=== PATIENT | female | born 1960 | race Caucasian/White ===

== ENCOUNTER → 2017-10-23 15:18 | Outpatient (CLI) | payer BC, SELFPAY ==
--- NOTE | 2017-10-23 15:21 | MM_ITS ---
MM Dig SC mamm implant BI CAD CAD Screening ORDERING PHYSICIAN : Miki Cordero MD PATIENT AGE: 57 years GENDER: Female COMPARISON: Previous mammograms: January 18 June 2000 13 February 2012 INDICATION: Routine screening. No hormones. Bilateral breast implants. 2 sisters with breast cancer TECHNIQUE: Standard CC and MLO images were obtained. R2 CAD reviewed. TECHNIQUE: Tiago technique utilized. CC & MLO images were obtained of the breast tissue overlying implant, as well as a second set of images including the breast implant. Mammography is inherently limited due to the implants is a could obscure areas of breast R2 CAD reviewed. FINDINGS: Moderately dense breast tissue overlying the breast implants bilaterally centimeters above Stable minimal nodularity bilaterally. For example at the lateral right left breast are some mild nodularity which is similar to studies dating back to 2016 & 2011 no significant progression or new findings. Minor subtle nodularity at the deep lateral left breast well as medial left breast have been seen previously and seem to dissipate from one view to another. Can be followed. Bilateral follow-up in one year adequate IMPRESSION:== No significant new areas of concern. Stable mammogram. Bilateral follow-up in one year recommended. & Should be emphasized/encouraged. . ( Note Bilateral breast implants limit visualization of breast & inherently decrease sensitivity of mammography, as does is moderate dense inhomogeneous breast pattern in this patient) BI-RADS Category: 2 Benign Finding(s) RECOMMENDED FOLLOW-UP: 1YR - 1 YEAR FOLLOW-UP (A letter has been sent to the patient regarding results of the study.) .
== END ==
PROVIDERS: Family Provider Family Medicine; PCP Family Medicine; Visit Provider Nurse Practitioner Obstetrics & Gynecology
DX: Z12.31 Encounter for screening mammogram for malignant neoplasm of breast (principal)
CPT/HCPCS: 77067

== ENCOUNTER → 2018-01-18 16:16 | Outpatient (POV) | payer BC, SELFPAY | PROVIDERS: Family Provider Family Medicine; PCP Family Medicine; Visit Provider Nurse Practitioner Acute Care | DX: Z00.00 Encounter for general adult medical examination without abnormal findings (principal) ==

== ENCOUNTER → 2019-06-29 08:28 | Outpatient (CLI) | payer BC, SELFPAY ==
--- NOTE | 2019-06-29 08:30 | MM_ITS ---
PROCEDURE: MM DIG SC MAMM IMPLANT BI CAD CLINICAL INDICATION: Routine Screening Mammogram- With Implants COMPARISON: [facility] DIG MAMM-SCREEN IMPLANT from 06/29/2013 D[facility]I DIG MAMM-SCREEN IMPLANT from 01/09/2016 [facility] MM Dig SC mamm implant BI CAD from 10/23/2017 TECHNIQUE: Standard CC and MLO images were obtained. R2 CAD reviewed. FINDINGS: There are bilateral breast implants. Both implants appear intact with no evidence of leakage. Moderate somewhat heterogenic fibroglandular densities are seen in the [place] breast tissue bilaterally. There is no suspicious lesion in either breast and no suspicious microcalcifications. IMPRESSION: Stable exam with no suspicious lesions seen BI-RAD Category: 2 Benign Finding(s) FOLLOW-UP: 1YR 1 Year Follow-up (A letter has been sent to the patient regarding results of the study.) Dictated by: Dr. César Spring MD 07/04/2019 11:[address] César Spring MD in [place] 07/04/2019 11:37
== END ==
PROVIDERS: PCP Family Medicine; Visit Provider Nurse Practitioner Obstetrics & Gynecology
DX: Z12.31 Encounter for screening mammogram for malignant neoplasm of breast (principal)
CPT/HCPCS: 77067

== ENCOUNTER → 2019-07-29 07:50 | Outpatient (CLI) | payer BC, SELFPAY ==
[2019-07-29 08:16] LABS: Basophils % 0.5 % (0.1-2.0); Eosinophils # 0.1 K/mm3 (0.0-0.4); Eosinophils % 1.7 % (0.1-12.0); Hematocrit 42.3 % (37.0-47.0); Hemoglobin 14.4 g/dL (12.2-16.2); Lymphocytes # 1.8 K/mm3 (0.7-4.5); Mean Corpuscular HGB Conc 34.1 g/dL (31.8-35.4); Mean Corpuscular Hemoglobin 31.1 pg (27.0-31.2); Mean Corpuscular Volume 91.2 fl (81-99); Mean Platelet Volume 8.2 fl (7.4-10.4); Monocytes # 0.2 K/mm3 (0.1-1.0); Monocytes % 4.5 % (1.7-9.3); Neutrophils # 3.1 K/mm3 (1.8-7.8); Neutrophils % 58.3 % (37.0-80.0); Platelet Count 219 K/mm3 (142-424); Red Blood Count 4.63 M/mm3 (4.20-5.40); Red Cell Distribution Width 13.2 % (11.5-17.5); White Blood Count 5.2 K/mm3 (4.8-10.8)
[2019-07-29 08:54] LABS: Alanine Aminotransferase 26 U/L (12-78); Albumin Level 3.8 gm/dL (3.4-5.0); Albumin/Globulin Ratio 1.2 (1.1-1.8); Alkaline Phosphatase 93 U/L (46-116); Anion Gap 12.2 mEq/L (5-15); Aspartate Amino Transferase 16 U/L (15-37); Bilirubin,Total 0.8 mg/dL (0.2-1.0); Blood Urea Nitrogen 15 mg/dL (7-18); Calcium 8.5 mg/dL (8.5-10.1); Carbon Dioxide 29 mmol/L (21.0-32.0); Chloride 105 mmol/L (98-107); Cholesterol 219 mg/dL (140-200); Creatinine,Serum 0.73 mg/dL (0.55-1.02); Estimated Glomerular Filt Rate 82 ml/min (>60); GFR (African American) 99 ML/MIN (>60); Globulin 3.2 gm/dl (1.3-3.2); Glucose 114 mg/dL (74-106); HDL Cholesterol 44 mg/dL (29-89); LDL Cholesterol 126 mg/dL (0-130); Potassium 4.2 mmoL/L (3.5-5.1); Sodium 142 mmol/L (136-145); Thyroid Stimulating Hormone 0.79 uIU/ml (0.358-3.740); Triglycerides 246 mg/dL (30-200); VLDL Cholesterol 49 mg/dL (0-40)
== END ==
PROVIDERS: Visit Provider Nurse Practitioner Obstetrics & Gynecology
DX: Z01.419 Encounter for gynecological examination (general) (routine) without abnormal findings (principal); R53.83 Other fatigue; R63.5 Abnormal weight gain
CPT/HCPCS: 36415; 80053; 80061; 84443; 85025

== ENCOUNTER 2021-03-19 17:19 | Emergency (ER) | payer BC, SELFPAY ==
[2021-03-19 18:50] VITALS: BP 142/80; PULSE 91; RESP 19; TEMP 36.7; O2SAT 100; BMI 35.6
--- NOTE | 2021-03-19 19:19 | HMH.EDUTC ---
[facility] [place] Clinical Impression: Strep throat Disposition: Home, Self-Care Condition on Discharge: Good Instructions: Strep Throat, DI for Strep Throat, Benzonatate, Amoxicillin Additional Instructions: *Monitor Temp, Over the counter Motrin or Tylenol as directed/as needed Tylenol every 4 hours and Motrin every 6 hours (as long as your family doctor has told you that you can take it) for fever or pain. and straight to ER if unable to lower temp less than 101.0 after medication given *Warm salt water gargles may help to soothe the throat *Throat Lozenges *Warm fluids like tea with honey may help to soothe the throat *Sleep elevated *Humidifier/Vaporizer Take medication as prescribed Make sure to Drink plenty of fluids Follow up IMMEDIATELY for new or worsening symptoms or no Noticeable improvement over the next 48-72 hours. 911 for difficulty breathing or swallowing You were tested for today for COVID19 your test result should be back in the next 24-48 hours, you may call to the [facility] to see if your test results are back in the next 48 hours [phone] [facility] hours are 9am-9pm You was given a handout with instructions for Self Quarantine and Self isolation for while you wait on test results and what to do if they are positive If you are positive the Health Dept will be contacting you also Make sure to take your Vitamins Vit. C Vit D and Zinc if you can take them Prescriptions: Amoxicillin [Amoxicillin 500mg Cap] 500 mg PO TID #30 cap Transmission Status: Pending to [id number] Benzonatate [Tessalon Perle 100mg Cap*] 100 mg PO TID PRN #30 cap PRN Reason: Cough Transmission Status: Pending to [id number] Referrals: Charanjit Syed [Primary Care Provider] - As needed Forms: Work/School Release Time of Disposition: 19:27 Medical Decision Making - Chuck Inquiry Pt receiving controlled substance: No Chuck was queried for this patient: No Vital Signs: 03/19/21 18:50 Temperature 98.1 F Temperature Source Oral Pulse Rate [Right Brachial] 91 H Respiratory Rate 19 Blood Pressure [Right Arm] 142/80 H Blood Pressure Mean [Right Arm] 100 Blood Pressure Source [Right Arm] Automatic Cuff Blood Pressure Position [Right Arm] Sitting 02 Sat by Pulse Oximetry 100 Oxygen Delivery Method Room Air - Lab Data Lab results reviewed: Yes: I reviewed the patient's lab results. Orders (Tests/Meds): ORDERS Category Date Time Status Covid-19 Nasal PCR ([facility]) Routine Lab 03/19/21 19:07 Ordered [facility] [place] - General Stated complaint: cough,TAYLOR, Body Pain, Ear Pain Time Seen by Provider: 03/19/21 19:19 Mode of Arrival: Ambulatory Source of Information: Patient Limitations: No Limitations Description of Symptoms (Recalled from Triage Doc. by RN): PATIENT C/O BODY ACHES, COUGH, HEADACHE, AND EAR ACHE SINCE YESTERDAY HEENT Symptoms (Recalled from RN notes): Yes Resp Symptoms (Recalled from RN notes): Yes Skin Symptoms (Recalled from RN notes): No MS Symptoms (Recalled from RN notes): No Functional Status (Recalled from RN notes): WNL - History of Present Illness Provider Complaint: Patient state that she has been having body aches, sore throat, pain in her ears, and feeling achy all over States that son tested positive for strep yesterday and feels like she may have it too and wanted to get tested for COVID - Related Data Home Medications Medication Instructions Recorded Confirmed amitriptyline 25 mg tablet 25 mg PO DAILY 30 Days #30 12/14/17 03/19/21 zolpidem 10 mg tablet 10 mg PO QHS PRN 12/14/17 03/19/21 omeprazole 20 mg capsule,delayed 10 mg PO DAILY 07/18/19 03/19/21 release Previous Rx's Medication Instructions Recorded Amoxicillin [Amoxicillin 500mg 500 mg PO TID #30 cap 03/19/21 Cap] Benzonatate [Tessalon Perle 100mg 100 mg PO TID PRN #30 cap 03/19/21 Cap*] Allergies Allergy/AdvReac Type Severity Reaction Status Date / Time hydrocodone Allergy Verified
[2021-03-19 19:37] VITALS: BP 142/80; PULSE 91; RESP 19; TEMP 36.7; O2SAT 100
--- NOTE | 2021-03-20 12:58 | PC.NURSE ---
relayed positive covid result
[2021-03-20 22:36] LABS: UTC Strep Screen (Rapid) Positive (Negative)
== END 2021-03-19 19:40 | disposition home or self-care (01) ==
PROVIDERS: Emergency Provider Nurse Practitioner; PCP Family Medicine
DX: J02.0 Streptococcal pharyngitis (principal); R05 Cough; R51.9 Headache, unspecified
CPT/HCPCS: 87880; 99203; G0463; U0003

== ENCOUNTER → 2021-08-07 14:32 | Outpatient (CLI) | payer OTHER, SELFPAY ==
--- NOTE | 2021-08-07 14:32 | MM_ITS ---
PROCEDURE INFORMATION: Exam: MG Bilateral Screening 3D Mammography Exam date and time: 08/07/2021 2:32 PM Age: 61 years old Clinical indication: Screening mammogram TECHNIQUE: Imaging protocol: Bilateral screening tomosynthesis and 2D mammography including computer-aided detection (CAD) when performed. COMPARISON: 1. MG MM DIG SC MAMM IMPLANT BI CAD 06/29/2019 8:45 AM 2. MG [facility] MM Dig SC mamm implant BI CAD 10/23/2017 3:42 PM 3. MG DMSI DIG MAMM-SCREEN IMPLANT 01/09/2016 4:48 PM 4. MG [facility]MSI DIG MAMM-SCREEN IMPLANT 06/29/2013 11:25 AM FINDINGS: MAMMOGRAPHY: Breast composition: The breast tissue is heterogeneously dense, which may obscure small masses. Mass: None. Architectural distortion: No new or suspicious architectural distortion. Calcifications: No new or suspicious calcifications are present Asymmetric density: No new or suspicious asymmetric density is present Skin thickening: None. Axillary adenopathy: None. Implants: Subpectoral saline augmentation implants are present. IMPRESSION: No mammographic evidence of malignancy. Recommend annual screening mammography unless otherwise clinically indicated. ASSESSMENT: BI-RADS category 2: Benign
== END ==
PROVIDERS: PCP Family Medicine; Visit Provider Nurse Practitioner Obstetrics & Gynecology
DX: Z12.31 Encounter for screening mammogram for malignant neoplasm of breast (principal)
CPT/HCPCS: 77063; 77067

== ENCOUNTER 2022-11-30 14:31 | Emergency (ER) | payer OTHER, SELFPAY ==
[2022-11-30 15:45] VITALS: BP 133/80; PULSE 75; RESP 19; TEMP 36.8; O2SAT 97; BMI 35.3
--- NOTE | 2022-11-30 16:13 | EXP.UTC ---
Discharge Plan Disposition Patient Disposition: Home, Self-Care Condition: Good Prescriptions Prescriptions: New benzonatate 100 mg capsule 100 mg PO TID PRN (Reason: cough) Qty: 30 0RF amoxicillin-pot clavulanate 875-125 mg Tablet 1 tab PO Q12H Qty: 20 0RF fluticasone propionate [Flonase Allergy Relief] 50 mcg/actuation spray,suspension 1 - 2 spray intranasal DAILY Qty: 16 0RF Rx Instructions: administer into each nostril daily No Action zolpidem [Ambien] 10 mg tablet 10 mg PO QHS PRN (Reason: Sleep) montelukast 10 mg tablet 10 mg PO DAILY albuterol sulfate 90 mcg/actuation HFA aerosol inhaler 2 puff INHALATION aspirin 81 mg capsule 81 mg PO DAILY omeprazole 20 mg capsule,delayed release(DR/EC) 10 mg PO DAILY famotidine 40 mg tablet 40 mg PO DAILY Label Comments: TAKE 1 TABLET BY MOUTH EVERY DAY AT NIGHT triamterene-hydrochlorothiazid 37.5-25 mg tablet 1 tab PO DAILY Label Comments: TAKE 1 TABLET BY MOUTH EVERY DAY Referrals Follow up/Referrals: Charanjit Syed [Primary Care Provider] - See instructions Activity Restrictions/Add. Instructions Additional Instructions/Restrictions: *Monitor Temp, Over the counter Motrin or Tylenol as directed/as needed Tylenol every 4 hours and Motrin every 6 hours (as long as your family doctor has told you that you can take it) for fever or pain. and straight to ER if unable to lower temp less than 101.0 after medication given *Warm salt water gargles may help to soothe the throat *Throat Lozenges? *Warm fluids like tea with honey may help to soothe the throat? *Sleep elevated *Humidifier/Vaporizer *Flonase 2 sprays in each nostril daily but be aware that it may take 2-3 days before you notice improvement Follow up IMMEDIATELY for new or worsening symptoms or no Noticeable improvement over the next 48-72 hours. 911 for difficulty breathing or swallowing Clinical Impressions Clinical Impression: Sinusitis Instructions Patient Instructions: DI for Sinusitis, Sinusitis, Cough Discharge ED Provider: Cat Lazo [facility] General Stated complaint: Congestion, drainage, Cough, LT ear pain Mode of Arrival: Ambulatory Source of Information: Patient Limitations: No Limitations Time Seen by Provider: 11/30/22 16:13 Description of Symptoms (Recalled from Triage Doc. by RN): productive cough, ear, and sinus pressure HEENT Symptoms (Recalled from RN notes): Yes Resp Symptoms (Recalled from RN notes): No Skin Symptoms (Recalled from RN notes): No MS Symptoms (Recalled from RN notes): No Functional Status (Recalled from RN notes): n/a History of Present Illness Provider Complaint: Patient states that she has been having pain in her left ear, sinus pain and pressure, and cough States that she has productive cough when she wakes up thinks it may be from the drainage when she is sleeping and after she is up she doesnt cough anything up States that her sinus pressure was getting worse so she came in to get checked Related Data Home Medications Medication Instructions Recorded Confirmed zolpidem 10 mg tablet (Ambien) 10 mg PO QHS PRN Sleep 12/14/17 11/30/22 omeprazole 20 mg capsule,delayed 10 mg PO DAILY Heartburn 07/18/19 11/30/22 release albuterol sulfate 90 mcg/actuation 2 puff inhalation 07/31/21 07/31/21 aerosol inhaler aspirin 81 mg capsule 81 mg PO DAILY 07/31/21 07/31/21 montelukast 10 mg tablet 10 mg PO DAILY allergies 07/31/21 11/30/22 famotidine 40 mg tablet 40 mg PO DAILY gerd 11/30/22 11/30/22 triamterene 37.5 1 tab PO DAILY . 11/30/22 11/30/22 mg-hydrochlorothiazide 25 mg tablet Previous Rx's Medication Instructions Recorded amoxicillin 875 mg-potassium 1 tab PO Q12H #20 tabs 11/30/22 clavulanate 125 mg tablet benzonatate 100 mg capsule 100 mg PO TID PRN cough #30 caps 11/30/22 fluticasone propionate 50 1 - 2 spray intranasal DAILY #16
[2022-11-30 16:30] VITALS: BP 133/80; PULSE 75; RESP 19; TEMP 36.8; O2SAT 97
== END 2022-11-30 16:29 | disposition home or self-care (01) ==
PROVIDERS: Emergency Provider Nurse Practitioner; PCP Family Medicine
DX: J01.90 Acute sinusitis, unspecified (principal); H92.02 Otalgia, left ear; R05.9 Cough, unspecified; I10 Essential (primary) hypertension; K21.9 Gastro-esophageal reflux disease without esophagitis
CPT/HCPCS: 99212; 99214; G0463

== ENCOUNTER → 2023-03-31 16:45 | Outpatient (CLI) | payer OTHER, SELFPAY ==
--- NOTE | 2023-03-31 16:50 | MM_ITS ---
PROCEDURE INFORMATION: Exam: MG Bilateral Screening 3D Mammography Exam date and time: 03/31/2023 4:43 PM Age: 62 years old Clinical indication: Screening examination; Additional info: Screening mammogram . Family history of breast carcinoma. TECHNIQUE: Imaging protocol: Bilateral Screening tomosynthesis and 2D mammography including computer-aided detection (CAD) when performed. COMPARISON: 1. MG MM DIG SC MAMM IMPLANT BI CAD 08/07/2021 2:41 PM 2. MG MM DIG SC MAMM IMPLANT BI CAD 06/29/2019 8:45 AM 3. MG [facility] MM Dig SC mamm implant BI CAD 10/23/2017 3:42 PM FINDINGS: MAMMOGRAPHY: Breast composition: The breasts are heterogeneously dense, which may obscure small masses. Mass: No suspicious masses. Architectural distortion: No suspicious distortion. Calcifications: No suspicious calcifications. Asymmetric density: None. Skin thickening: None. Axillary adenopathy: None. Implants: : Bilateral subpectoral saline breast implants noted IMPRESSION: 1. No mammographic evidence of malignancy. Annual screening is recommended unless otherwise clinically indicated. 2. Given the reported risk factors for this patient, a breast cancer risk assessment may prove useful for further evaluation. ASSESSMENT: BI-RADS Category 1: Negative
== END ==
PROVIDERS: PCP Family Medicine; Visit Provider Nurse Practitioner Obstetrics & Gynecology
DX: Z12.31 Encounter for screening mammogram for malignant neoplasm of breast (principal)
CPT/HCPCS: 77063; 77067

== ENCOUNTER → 2023-04-04 08:51 | Outpatient (CLI) | payer OTHER, SELFPAY ==
[2023-04-04 09:49] LABS: Basophils % 0.6 % (0.1-2.0); Eosinophils # 0.1 K/mm3 (0.0-0.4); Eosinophils % 1.1 % (0.1-12.0); Hematocrit 40.6 % (37.0-47.0); Lymphocytes # 1.8 K/mm3 (0.7-4.5); Lymphocytes % 25.5 % (10-50); Mean Corpuscular HGB Conc 34.6 g/dL (31.8-35.4); Mean Corpuscular Hemoglobin 30.2 pg (27.0-31.2); Mean Corpuscular Volume 87.5 fl (81-99); Mean Platelet Volume 9.1 fl (7.4-10.4); Monocytes # 0.3 K/mm3 (0.1-1.0); Monocytes % 4.9 % (1.7-9.3); Neutrophils # 4.8 K/mm3 (1.8-7.8); Platelet Count 230 K/mm3 (142-424); Red Blood Count 4.63 M/mm3 (4.20-5.40); Red Cell Distribution Width 13.8 % (11.5-17.5)
[2023-04-04 11:36] LABS: Alanine Aminotransferase 22 U/L (12-78); Albumin/Globulin Ratio 1.4 (1.1-1.8); Alkaline Phosphatase 103 U/L (38-126); Aspartate Amino Transferase 26 U/L (14-36); Bilirubin,Total 1.1 mg/dl (0.2-1.3); Blood Urea Nitrogen 12 mg/dl (7-17); Calcium 8.8 mg/dl (8.4-10.2); Carbon Dioxide 32 mmol/L (22.0-30.0); Chloride 101 mmol/L (98-107); Chol/HDL Ratio 4.5 (1-3.5); Cholesterol 158 mg/dl (140-200); Estimated Glomerular Filt Rate 85 ml/min (>60); GFR (African American) 103 ML/MIN (>60); Globulin 2.8 g/dL (1.3-3.2); Glucose 115 mg/dl (74-100); HDL Cholesterol 35 mg/dl (40-60); Sodium 141 mmol/L (136-145); Total Protein,Serum 6.8 g/dl (6.3-8.2); Triglycerides 146 mg/dl (30-150); VLDL Cholesterol 29 mg/dL (0-40)
[2023-04-04 11:47] LABS: Direct LDL Cholesterol 86.76 mg/dL (100-129)
== END ==
PROVIDERS: PCP Family Medicine; Visit Provider Nurse Practitioner Obstetrics & Gynecology
DX: Z00.00 Encounter for general adult medical examination without abnormal findings (principal)
CPT/HCPCS: 36415; 80053; 80061; 85025

== ENCOUNTER 2024-11-08 12:36 | Outpatient (CLI) | payer OTHER, SELFPAY ==
--- NOTE | 2024-11-08 13:08 | MM_ITS ---
PROCEDURE INFORMATION: Exam: MG Bilateral Screening 3D Mammography Exam date and time: 11/08/2024 1:09 PM Age: 64 years old Clinical indication: Screening. Two sisters and maternal aunts had breast cancer. TECHNIQUE: Imaging protocol: Bilateral Screening tomosynthesis and 2D mammography including computer-aided detection (CAD) when performed. COMPARISON: 1. MG MM DIG SC MAMM IMPLANT BI CAD 03/31/2023 4:43 PM 2. MG MM DIG SC MAMM IMPLANT BI CAD 08/07/2021 2:41 PM 3. MG MM DIG SC MAMM IMPLANT BI CAD 06/29/2019 8:45 AM 4. MG [facility] MM Dig SC mamm implant BI CAD 10/23/2017 3:42 PM FINDINGS: MAMMOGRAPHY: Breast composition: The breasts are heterogeneously dense, which may obscure small masses. Mass: No suspicious mass. Architectural distortion: None. Calcifications: No suspicious calcifications. Asymmetric density: None. Skin thickening: None. Axillary adenopathy: None. Implants: Subpectoral saline implants. IMPRESSION: No mammographic evidence of malignancy. Annual screening is recommended unless otherwise clinically indicated. Given the reported risk factors coupled with the patient's breast density, a breast cancer risk assessment may prove useful for further evaluation. ASSESSMENT: BI-RADS Category 1: Negative.
--- OUTSIDE RECORDS SUMMARY | 2024-11-10 21:11 | XMS_ITS | Data Portability ---
Author Organization [facility] ADMIN Address [address] [place] [address] Care Team Providers Care Marina Porter Name Role Phone DANIELSHEELA Primary Care Provider BRENDA GASCA Final Finisher [employer] [phone] Assessment No assessment recorded. Plan of Treatment Reminders Order Date Submit Date Provider Last Modified By Organization Details Last Modified Time Details Appointments Procedure 30 min 2024 09:00A Madeleine Wakefield M.D Not available Not available Not available OV EST 15 2024 09:45A M Brenda Gasca, ARABELLA Not available Not available Not available Lab None recorded. Referral None recorded. Procedures colonosco py procedure (PROC) 2023 024 [facility] Adam [address], [place], [address], 04/13/2024 13:50:22 Surgeries None recorded. Imaging US, liver [address] ([facility], [address] [place] [address] , [place], [address], 03/30/2024 13:32:37 Medication Orders omeprazol e 40 mg capsule,d elayed release 2023 024 [facility]/Pharmacy #[id number], [address], [place], [address], 03/30/2024 13:32:39 famotidin e 40 mg tablet [address] [facility]/Pharmacy #3016, [address] [place], [address], 03/30/2024 13:32:39 Miralax 17 gram/dose oral powder [email or web address] [facility]/Pharmacy #3016, [address] [place], [address], 03/30/2024 14:37:39 Dulcolax (bisacody l) 5 mg tablet,de layed release [email or web address] [facility]016, [address] [facility] [place], [address], 03/30/2024 14:37:39 Patient TargetsNo targets recorded. Patient InstructionsNo instructions recorded. Reason for Referral None Reported. Results Created Date Observation Date Name Description Value Unit Range Abnormal Flag Note LastModifiedBy Organization Detail LastModifiedTime 04/06/20 24 audio gram No observ ation record ed. [email or web address] Not Available 2023 17:10:50 Result Notes None recorded. Problems Name Problem SNOMED Code Status Onset Date Resolution Date Notes Provider Name and Address Organization Details Recorded Time Hearing loss 28521824 Active 2021 Kelly pelayo [place] - [facility] - [place] & [place] 2 10:35:33 Gastroesophag eal reflux disease 585741178 Active 2021 Kelly pelayo [place] [facility] [place] & [place] 2 10:35:46 Upper abdominal pain 92184524 Active 2021 Brenda Gasca NP [address], [address], [address] , [place] [facility] & [place] 2 11:10:08 Gastro-esopha geal reflux disease with esophagitis 115513623 Active 2021 Brenda Gasca NP [address], [address], [place], [address] , [place] [facility] & [place] 2 11:10:21 Abdominal bloating 106866941 Active 2021 Brenda Gasca NP [address], [address], [place], [address] , [place] [facility] [place] & [place] 2 11:10:30 Steatosis of liver 518131324 Active 2021 Brenda Gasca NP [address], [address], [place], [address] , [place] [facility] & [place] 2 11:10:36 Liver cyst 58009753 Active 2021 Brenda Gasca NP [address], [address], [place], [address] , [place] [facility] & [place] 2 11:10:44 Gastritis 0903631 Active 2022 Brenda Gasca NP [address], [address], [place], [address] , [place] [facility] & [place] 3 22:21:51 Sensorineural hearing loss 78922661 Active 2023 JOSE MANUEL KRUGER, AUD [address] , [place], [address] , [place] [facility] & [place] 4 16:53:38 Asymmetrical sensorineural hearing loss 554543322 Active 2023 JOSE MANUEL KRUGER, AUD [address] , [place], [address] , [place] [facility] & [place] 4 16:56:00 Problem Notes None recorded. Procedures Surgical History Date Name Laterality Status Provider Name and Address Organization Details Recorded Time 3 completed Seema Epps [place] [facility] [place] & [place] 04/19/2024 09:40:39 3 Date of Last Pap Smear completed Seema Epps [place] [facility] [place] & [place] 04/19/2024 09:40:39 3 EGD/Endoscopy completed Kelly Hawthorne [place] [facility] [place] & [place] 03/25/2023 08:58:44 2 Date of Last Colonoscopy completed Seema Supriya [place] - [facility] [place] & [place] 04/19/2024 09:40:39 2 Colonoscopy completed Seema [facility] & [place] 04/19/2024 09:40:46 1 Colonoscopy completed Seema M[facility]A [facility] & [place] 04/20/2024 15:34:16 9 EGD/Endoscopy completed Kelly MESA [facility] & [place] 07/16/2022 10:46:52 0 ENT Surgery completed Seema MESA [facility] & [place] 04/20/2024 15:34:16 Other completed Seema MESA [facility] & [place] 04/19/2024 09:40:46 Tubal Ligation completed Kelly MESA [facility] & [place] 07/16/2022 10:46:20 excision of lipoma of shoulder completed Kelly MESA [facility] & [place] 07/16/2022 10:46:39 Imaging Results Imaging Date Name Status LastModified by Organiz ation Details LastModified Time 04/06/2024 audiogram completed [email or web address] Information no t available 04/06/2024 17:10:50 Procedure Notes None recorded. Medical Equipment None Reported. Allergies Allergen ID Allergen Name Allergen Category Reaction Reaction Severity Criticality Documentation Date Start Date Code Code System Note Provider Name and Address Organization Details Recorded Time 336458 diclofena c Not available chest pain Not available high 04/20/2024 3355 RxNorm KELLIE Waldron [facility] & [place] 4 15:34:28 08661 Avelox medicatio n other severe high 07/16/2022 26339 6 RxNorm blist ers in mouth Seema pelayo, KELLIE - MARCO ANT [facility] & [place] 4 15:34:59 Medications Name Sig Start Date Stop Date Status Note LastModified by Organization Details LastModified Time doxycycline hyclate 100 mg capsule 04/06 completed Not Available Not Available Not Available azithromyci n 250 mg tablet TAKE 2 TABLETS BY MOUTH TODAY, THEN TAKE 1 TABLET DAILY FOR 4 DAYS 09/30 completed Not Available Not Available Not Available fluconazole 150 mg tablet 04/06 completed Not Available Not Available Not Available benzonatate 200 mg capsule 04/06 completed Not Available Not Available Not Available sucralfate 1 gram tablet 09/29 completed Not Available Not Available Not Available famotidine 40 mg tablet TAKE 1 TABLET BY MOUTH EVERY DAY AT NIGHT 2024 active Not Available Not Available Not Avai lable prednisone 20 mg tablet TAKE 2 TABLETS BY MOUTH X 2 DAYS, THEN 1 TAB X 2 DAYS, THEN 1/2 TAB X 2 DAYS, THEN STOP active Not Available Not Available No t Available betamethaso ne, augmented 0.05 % topical cream 04/06 completed Not Available Not Available Not Available omeprazole 40 mg capsule,del ayed release TAKE 1 CAPSULE BY MOUTH EVERY DAY BEFORE MEALS 2024 active Not Available Not Available Not Avai lable minoxidil 2.5 mg tablet 09/29 completed Not Available Not Available Not Available amitriptyli ne 25 mg tablet TAKE 1 TABLET BY MOUTH EVERYDAY AT BEDTIME 09/30 completed Not Available Not Available Not Available benzonatate 100 mg capsule 04/06 completed Not Available Not Available Not Available pantoprazol e 40 mg tablet,meet yed release TAKE 1 TABLET BY MOUTH EVERY DAY 03/30 completed Not Available Not Available Not Available telmisartan 40 mg tablet 09/29 completed Not Available Not Available Not Available promethazin e 25 mg tablet TAKE 1 TABLET BY MOUTH EVERY 6 HOURS NEEDED FOR NAUSEA active Not Available Not Available No t Available nitroglycer in 0.4 mg sublingual tablet 09/29 completed Not Available Not Available Not Available triamterene 37.5 mg-hydrochl orothiazide 25 mg tablet TAKE 1 TABLET BY MOUTH EVERY DAY active Not Available Not Available No t Available omeprazole 20 mg capsule,del ayed release 04/20 completed Not Available Not Available Not Available magnesium citrate oral solution Drink two bottles of magnesium citrate the day before your procedure . active Not Available Not Available No t Available diclofenac sodium 75 mg tablet,meet yed release 09/29 completed Not Available Not Available Not Available montelukast 10 mg tablet TAKE 1 TABLET BY MOUTH EVERY DAY active Not Available Not Available No t Available clobetasol 0.05 % topical ointment active Not Available Not Available Not Available zolpidem 10 mg tablet TAKE 1 TABLET BY MOUTH EVERY DAY AT BEDTIME NEEDED active Not Available Not Available No t Available albuterol sulfate HFA 90 mcg/actuati on aerosol inhaler 04/06 completed Not Available Not Available Not Available cefdinir 300 mg capsule TAKE 1 CAPSULE BY MOUTH TWICE A DAY 09/30 completed Not Available Not Available Not Available fluticasone propionate 50 mcg/actuati on nasal spray,suspe nsion 04/06 completed Not Available Not Available Not Available dicyclomine 10 mg capsule TAKE 1 CAPSULE BY MOUTH EVERY 6 HOURS NEEDED FOR DIARRHEA/ CRAMPS active Not Available Not Available No t Available amoxicillin 875 mg-potassiu m clavulanate 125 mg tablet TAKE 1 TABLET BY MOUTH EVERY 12 HOURS 09/30 completed Not Available Not Available Not Available Laxative (bisacodyl) 5 mg tablet,meet yed release Take 2 tablets by oral route for 1 day. active Not Available Not Available No t Available escitalopra m 10 mg tablet 09/29 completed Not Available Not Available Not Available nitrofurant oin monohydrate /macrocryst als 100 mg capsule TAKE 1 CAPSULE BY MOUTH TWICE A DAY FOR 10 DAYS 04/06 completed Not Available Not Available Not Available lactulose 10 gram/15 mL oral solution 04/06 completed Not Available Not Available Not Available Purelax 17 gram/dose oral powder Take 17 g by oral route for 2 days. 04/06 completed Not Available Not Available Not Available Dupixent 300 mg/2 mL subcutaneou s pen injector active Not Available Not Available Not Available semaglutide (weight loss) 0.25 mg/0.5 mL subcutaneou s pen injector Inject by subcutane ous route. active Not Available Not Available No t Available Paxlovid 300 mg (150 mg x 2)-100 mg tablets in a dose pack TAKE 3 TABLETS BY MOUTH TWICE DAILY FOR 5 DAYS 03/30 completed Not Available Not Available Not Available Vitals Date Recorded Body height Provider Name an d Address Organization Details Last Updated DateTime 03/30/2024 157.48 cm Eliana Zurita [place] - [facility] - [facility] & [place] 03/30/2024 13:00:16 Date Recorded Body mass index (BMI) Body weight Body temperature Oxygen saturation Oxygen saturation in Arterial blood by Pulse oximetry Heart rate Provider Name and Address Organization Details Last Updated DateTime 25.8 kg/m2 19473.8 1 g 97.2 [degF] 100 % 100 % 83 /min Jaqueline Charlotte [facility] & [place] 13:01:04 Date Recorded Body height Body mass index (BMI) Body weight Body temperature Provider Name and Address Organization Details Last Updated DateTime 04/20/2024 157.48 cm 26.5 kg/m2 26275.18 g 97.8 [degF] Seema Epps [facility] & [place] 04/20/2024 15:33:39 Social History Question Answer Notes LastModified by [employer] ion Details LastModified Time Tobacco Smoking Status Former Smoker Kelly Hawthorne [facility] & [place] 07/16/2022 10:48:22 Do You Have An Advance Directive? Yes Information not available 04/20/2024 What Is Your Level Of Alcohol Consumption? None [email or web address] Information not available 07/16/2022 Are You Blind Or Do You Have Difficulty Seeing? Yes Information not available 04/20/2024 What Is Your Occupation? It [email or web address] Information not available 03/22/2024 What Was The Date Of Your Most Recent Tobacco Screening? 04/05/2024 Information not available 04/20/2024 Are You Passively Exposed To Smoke? No Information no t available 04/20/2024 Do You Use Any Illicit Or Recreational Drugs? No Information not available 07/16/2022 Sex: Unknown Functional Status Question Answer Note LastModified by [employer] ion Details LastModified Time What is your exercise level? Occasional Information not available 04/20/2024 Mental Status None recorded. Family History Nothing Reported. Medical History Condition Response Obstructive Sleep Apnea Y Obesity Y Arthritis Y Ear or Hearing Problems Y GI Problems Y Eczema Y Reflux/GERD Y Sleep Apnea Y GERD/Reflux Y Hypertension Y Gynecological History Statement/Question Response Abnormal Pap N 07/31/2023 Date of Last Colonoscopy 05/16/2022 Sexually Active? N Menses Monthly N Date of Last Pap Smear 07/01/2023 Current Control Method None Obstetrics History GPAL:G 0 P 0 0 0 0 Past Encounters Encounter ID Performer Location Encounter Start Date Encounter Closed Date Diagnosis/Indication Diagnosis SNOMED-CT Code Diagnosis ICD10 Code Diagnosis Note [id number] Brenda Gasca NP [facility] [address] [place] [phone] 07/16/2022 10:33:40 07/16/2022 13:29:58 Upper abdominal pain 08809950 R10.10 Continued upper abdominal pressure and bloating, however it has improved with use of Famotidine . Gallbladde r US from 02/25/22 noted fatty liver and likely hepatic cyst. Normal LFT's. Failed treatment with Carafate. Patient previously declined EGD. I have again recommende d dietary modificati ons as this is likely contributi ng to some component of her symptoms. Previously prescribed omeprazole 40 mg however did not receive this from her pharmacy. Will send new Rx today. Gastro-eso phageal reflux disease with esophagitis 176872665 K21.00 Remains well controlled with use of PPI and famotidine . Recommend continued reflux precaution s. Abdominal bloating 39979 9008 R14.0 Recommend dietary modificati ons as above. Will continue to monitor. Steatosis of liver 24515 1007 K76.0 Noted on ultrasound from 02/25/2022 . Normal LFTs 02/25/2022 . Recommend strict low-fat diet with increased exercise for weight loss. Liver cyst 90789867 K76. 89 Probable hepatic cyst measuring 2.4 cm on ultrasound from 02/25/2022 . Recommend repeat ultrasound 01/2023 for surveillan ce. [id number] Brenda Gasca NP [facility] [address] [place] [address] 01/14/2023 10:27:16 01/14/2023 11:18:42 Upper abdominal pain 41051666 R10.10 Continued episodes of upper abdominal pressure and fullness. She has made dietary changes. Continues PPI and Famotidine for treatment of GERD. Gallbladde r US from 02/25/22 noted fatty liver and likely hepatic cyst. Failed treatment with Carafate. Recommend EGD to evaluate for PUD, gastritis, h. pylori, other. Gastro-eso phageal reflux disease with esophagitis 486805847 K21.00 Remains well controlled with use of PPI and famotidine . Recommend continued reflux precaution s. Will send refills today. Steatosis of liver 1007 K76.0 Noted on ultrasound from 02/25/2022 . Normal LFTs 01/2022. She has been successful with weight loss with dietary modificati ons. Recommend continued low-fat diet with exercise for weight loss. Plan for liver US for surveillan ce. Liver cyst 91336762 K76. 89 Probable hepatic cyst measuring 2.4 cm on ultrasound from 02/25/2022 . Recommend repeat ultrasound as above for surveillan ce. [id number] Brenda Gasca NP [facility] [address] [place] [address] 03/25/2023 08:52:55 03/31/2023 11:44:24 Upper abdominal pain 47667271 R10.10 EGD 02/13/2023 noted mild nonerosive gastritis, benign fundic gland polyp reflux esophagiti s. She continues PPI and famotidine for treatment of GERD. She has made dietary changes with improved symptoms at this time. Gastro-eso phageal reflux disease with esophagitis 671442731 K21.00 Remains well controlled with use of PPI and famotidine . Recommend continued reflux precaution s. Reflux esophagiti s confirmed with pathology on EGD from 02/13/2023 . Steatosis of liver 1007 K76.0 Again noted on follow up US 01/27/23. Normal LFTs 01/2022. She continues to be successful with weight loss. Recommend continued low-fat diet with exercise for weight loss. Plan for liver US 1 year for surveillan ce. Liver cyst 99445423 K76. 89 Probable hepatic cyst measuring 2.5 cm on ultrasound from 01/27/23. Recommend repeat ultrasound in 1 year for surveillan ce. Gastritis 2583379 K29.70 Mild nonerosive gastritis noted on EGD 02/13/2023 . Recommend avoidance of NSAIDs as well as continued use of PPI as prescribed . [id number] Brenda Gasca NP [facility] [address] [place] [id number] 09/30/2023 12:57:53 09/30/2023 15:38:43 Upper abdominal pain 79132661 R10.10 EGD 02/13/2023 noted mild nonerosive gastritis, benign fundic gland polyp reflux esophagiti s. Improved with dietary modificati ons. Gastro-eso phageal reflux disease with esophagitis 571936771 K21.00 Recent uncontroll ed symptoms, worse at night. Recommend pantoprazo le 40 mg p.o. daily with continued use of famotidine . Discontinu e omeprazole at this time. Recommend continued reflux precaution s. Reflux esophagiti s confirmed with pathology on EGD from 02/13/2023 . Steatosis of liver 1007 K76.0 Hepatic steatosis noted on US 01/27/23. She continues to be successful with weight loss. Recommend continued low-fat diet with exercise for weight loss. Plan for liver US 01/2024 for surveillan ce. Liver cyst 14616591 K76. 89 Probable hepatic cyst measuring 2.5 cm on ultrasound from 01/27/23. Recommend repeat ultrasound 01/2024 for surveillan ce. [id number] Brenda Gasca NP [facility] [address] [address] 03/30/2024 12:47:34 04/01/2024 10:44:45 Screening for malignant neoplasm of colon 503104195 Z12.11 Recommend screening colonoscop y to rule out colorectal cancer, polyps, other. Last colonoscop y estimated greater than [address] Franco at [facility]. Gastro-eso phageal reflux disease with esophagitis 940010514 K21.00 controlled with use of omeprazole and famotidine . We will send refills today. Recommend continued reflux precaution s well as avoidance of known food triggers. Previously failed treatment with pantoprazo le due to constipati on. Reflux esophagiti s confirmed with pathology on EGD from 02/13/2023 . Steatosis of liver 1007 K76.0 Hepatic steatosis noted on US 01/2024. She continues to be successful with weight loss. Recommend continued low-fat diet with exercise for weight loss. Plan for liver US 01/2025 for surveillan ce. Liver cyst 50850317 K76. 89 Stable 2.5 cm cyst noted on follow up ultrasound 01/2024. 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 [id number] CARMEN VICTOR [facility] [place] [address] 07/06/2024 16:22:22 07/06/2024 16:45:46 Sensorineural hearing loss 58427514 H90.3 [id number] CARMEN VICTOR [facility] [place] [address] 08/17/2024 09:04:03 08/17/2024 09:28:24 Sensorineural hearing loss 94961947 H90.3 Health Concerns Section Related Observation LastModified by Organization Detai ls LastModified Time None Recorded Concern Status LastModified by Organization Details LastModified Time None Recorded Advance Directives Directive Y: Payers Encounter Date Sequence Insurance Name Policy Number Policy [place] Covered Member ID [place] Member ID Guarantor Name 03/30/2024 1 [employer] (POS) [id number] Cathy B [place] [id number] Cathy Yael 04/06/2024 1 [employer] (POS) [id number] Cathy B Yael [id number] Cathy Yael 04/20/2024 1 [employer] (POS) [id number] Cathy B [place] [id number] Cathy Yael 07/06/2024 [employer] Cathy Los Lun[place] Conley 08/17/2024 [employer] Cathy Conley Notes Date Note Type Note Provider Name and Address Organization Details Recorded Time 03/30/2024 text/html Patient returns to clinic today for follow-up on GERD and fatty liver. She continues Omeprazole and Famotidine for treatment of GERD with controlled symptoms. She does wake in the morning with some throat discomfort, otherwise doing well. She was previously prescribed Pantoprazole however discontinued due to constipation. She is having some diarrhea at this time after being prescribed antibiotics for UTI. Follow up liver US 01/2024 noted hepatic steatosis as well as hepatic cyst stable from prior. She continues to eat a healthy diet and has been successful wtih weight loss. Continues to avoid soda. She does believe that she is due for screening colonoscopy. Last colonoscopy completed with Dr. Franco estimated greater that 5 years ago. EGD 01/2023 with mild nonerosive gastritis, benign fundic gland polyp, and reflux esophagitis. Brenda Gasca NP [address] [place] [address], [address], [place], [address], [place] - [facility] - [place] & [place] 03/30/2024 13:35:12 04/06/2024 text/html Ms. Conley was s een today for an audiologic evaluation due to long-standing, asymmetrical hearing loss (L worse than R). Ms. Conley reports a previous tympanoplasty of the LE, approx. 40 years ago. She reports gradual hearing loss in the RE over time. She denies tinnitus, dizziness, drainage, aural fullness/pressure, and excessive noise exposure. Otoscopic inspection revealed tympanosclerosis bilaterally. Type B Tympanogram LE (normal vol)Type A RE Audiometric testing revealed a mild, sloping to severe, high freq SNHL in the RE with good word rec scores. Findings in the LE revealed a moderately severe, mid freq SNHL, then a severe high freq SNHL. Fair word rec scores in the LE. 1-Discussed findings with Ms. Conley. 2-Rec hearing aids bilaterally to improve communication at work. 3-F/u with Dr. Nicki Vigil MD for hearing aid clearance. 4-F/u hearing testing annually to monitor. JOSE MANUEL KRUGER, AUD [address], [place], [address], [facility] & [place] 04/06/2024 16:56:15 04/20/2024 text/html 04/20/24-Patient for hearing aid clearance. She reports a long history of ear surgeries in the left ear. She has had multiple. At least one by Dr. Kelley and one by Dr. Us. Her hearing in the left has always been worse. Last surgery was at least 10 years ago. She denies any vertigo or dizziness and denies any otorrhea or infections. Nicki Vigil MD [address], [place], [address], [facility] [place] 2024 11:39:25 07/06/2024 text/html Patient was seen today for a hearing aid fitting via [facility]. She was fit with [employer] 24 AI R JONELLE hearing aids bilaterally She was instructed on proper use, function, and cleaning. F/u prn. JOSE MANUEL SASKIA, CARMEN [address], [place], [address], [facility] [place] 07/06/2024 16:43:54 08/17/2024 text/html Patient was seen today for a hearing aid service. Cleaned and adjusted hearing aids this date. JOSE MANUELHeather KRUGER, CARMEN [address], [place], [address], [facility] [place] 08/17/2024 09:28:57 OBGyn Episode No OBEpisode recorded.
== END 2024-11-08 23:59 | disposition home or self-care (01) ==
LOC: RAD 12:37
PROVIDERS: PCP Family Medicine; Visit Provider Nurse Practitioner Obstetrics & Gynecology
DX: Z12.31 Encounter for screening mammogram for malignant neoplasm of breast (principal)
CPT/HCPCS: 77063; 77067